=== PATIENT | male | born 1950 | race Hispanic/Latino ===

== ENCOUNTER 2017-03-22 08:37 | Emergency (ER) | payer MEDICARE ==
[~2017-03-22] VITALS: Ht 172.7 cm; Wt 55.0 kg
[~2017-03-22 08:37] MED LIST: CORTISPORIN OTI10 M2 AD
[2017-03-22] MEDS ORDERED: BACTRIM DS1 TAB PO (09:19)
[2017-03-22] MEDS ORDERED: TRAMADOL HYDROC50 MG PO (09:19)
[2017-03-22 10:20] VITALS: BP 116/60
== END 2017-03-22 10:20 | disposition home or self-care (01) ==
LOC: ED 08:37
PROC: 0H9QXZZ Drainage of Finger Nail, External Approach (ICD-10-PCS; principal; 2017-03-22)
DX: S61.337A Puncture wound without foreign body of left little finger with damage to nail, initial encounter (principal); L03.012 Cellulitis of left finger; W22.8XXA Striking against or struck by other objects, initial encounter; Y93.H9 Activity, other involving exterior property and land maintenance, building and construction; Y92.007 Garden or yard of unspecified non-institutional (private) residence as the place of occurrence of the external cause

== ENCOUNTER 2022-10-09 17:06 | Emergency (ER) | payer MEDICARE ==
[~2022-10-09] VITALS: Ht 170.2 cm; Wt 54.4 kg
[~2022-10-09 17:06] MED LIST changes: +BACTRIM DS1 TAB PO; +TRAMADOL HYDROC50 MG PO
[2022-10-09] MEDS ORDERED: OFLOXACIN0.3 % OS (17:34)
[2022-10-09 18:08] VITALS: BP 121/59
== END 2022-10-09 18:20 | disposition home or self-care (01) ==
LOC: ED 17:06
DX: S05.02XA Injury of conjunctiva and corneal abrasion without foreign body, left eye, initial encounter (principal); S05.01XA Injury of conjunctiva and corneal abrasion without foreign body, right eye, initial encounter; X58.XXXA Exposure to other specified factors, initial encounter

== ENCOUNTER 2024-03-13 13:17 | Emergency (ER) | payer MEDICARE ==
[~2024-03-13] VITALS: Ht 170.2 cm; Wt 58.0 kg
[~2024-03-13 13:17] MED LIST changes: +OFLOXACIN0.3 % OS
[2024-03-13 14:06] VITALS: BP 100/66
[2024-03-13 14:15] VITALS: BP 104/56
[2024-03-13 14:30] VITALS: BP 112/63
[2024-03-13 14:45] VITALS: BP 119/70
[2024-03-13 15:01] VITALS: BP 127/62
[2024-03-13 15:15] VITALS: BP 110/69
== END 2024-03-13 15:05 | disposition home or self-care (01) ==
LOC: ED 13:17
DX: S40.011A Contusion of right shoulder, initial encounter (principal); S20.211A Contusion of right front wall of thorax, initial encounter; E11.9 Type 2 diabetes mellitus without complications; W01.0XXA Fall on same level from slipping, tripping and stumbling without subsequent striking against object, initial encounter; Y93.H2 Activity, gardening and landscaping; Y92.007 Garden or yard of unspecified non-institutional (private) residence as the place of occurrence of the external cause